=== PATIENT | female | born 1955 | race Caucasian/White ===

== ENCOUNTER → 2016-10-09 | Outpatient (CLI) | payer OTHER ==
[~2016-10-09] MED LIST: DYAZ37.57 PO; ESTROGEN PO; LOVA20TA PO; PRIL20TA2 PO; RANI150 PO; TRAZ150T2 PO; ZOFR8TAB PO; [UNRECOGNIZED DRUG - CODE] PO
[2016-10-09 16:12] LABS: BICARBONATE 29.9 MEQ/L (21.0-32.0); POTASSIUM 3.4 MEQ/L (3.5-5.1)
== END ==
LOC: PLAB 13:03
PROVIDERS: ATTEND Family Medicine
DX: R11.0 Nausea (principal)
CPT/HCPCS: 80048

== ENCOUNTER → 2016-10-11 | Outpatient (CLI) | payer OTHER ==
[2016-10-11 16:57] LABS: AUTOMATED NEUTROPHIL # 3.5 TH/MM3 (1.8-7.7); BASOPHIL % 0.7 % (0.0-2.0); EOSINOPHIL % 0.2 % (0.0-4.0); HEMATOCRIT 39.5 % (35.0-46.0); HEMO FLAGS DIFF FINAL; LYMPH % 34.2 % (9.0-44.0); LYMPHOCYTE # 2.2 TH/MM3 (1.0-4.8); MEAN CELL VOLUME 94.8 FL (80.0-100.0); MEAN CORPUSCULAR HEMOGLOBIN 32.6 PG (27.0-34.0); MEAN CORPUSCULAR HGB CONC 34.4 % (32.0-36.0); MONO % 11.1 % (0.0-8.0); NEUT % 53.8 % (16.0-70.0); PLATELET COUNT 367 TH/MM3 (150-450); RED BLOOD COUNT 4.17 MIL/MM3 (4.00-5.30); RED CELL DISTRIBUTION WIDTH 13.3 % (11.6-17.2); WHITE BLOOD COUNT 6.5 TH/MM3 (4.0-11.0)
[2016-10-11 17:22] LABS: RHEUMATOID FACTOR TRIGGER LESS THAN 10.0 IU/ML (0.0-14.9)
[2016-10-11 17:32] LABS: WESTERGREN SEDIMENTATION RATE 7 mm/hr (0-30)
[2016-10-16 03:53] LABS: SCL-70 IGG AUTOAB <1.0 NEG AI (<1.0 NEGATIVE)
== END ==
LOC: PLAB 14:53
PROVIDERS: ATTEND Family Medicine
DX: R11.0 Nausea (principal); E87.6 Hypokalemia; N28.9 Disorder of kidney and ureter, unspecified; R19.7 Diarrhea, unspecified; R63.4 Abnormal weight loss
CPT/HCPCS: 85025; 85652; 86038; 86140; 86160; 86225; 86235; 86430; 88184

== ENCOUNTER → 2017-03-11 | Outpatient (CLI) | payer OTHER ==
[2017-03-11 15:25] LABS: HEMATOCRIT 38.7 % (35.0-46.0); MEAN CELL VOLUME 98.7 FL (80.0-100.0); MEAN CORPUSCULAR HEMOGLOBIN 32.6 PG (27.0-34.0); PLATELET COUNT 348 TH/MM3 (150-450); RED BLOOD COUNT 3.92 MIL/MM3 (4.00-5.30); RED CELL DISTRIBUTION WIDTH 12.6 % (11.6-17.2); REVIEW FLAG FINAL
[2017-03-11 15:52] LABS: ALKALINE PHOSPHATASE 42 U/L (45-117); HDL CHOLESTEROL 110.6 MG/DL (40.0-60.0); TOTAL BILIRUBIN ADULT 0.5 MG/DL (0.2-1.0)
[2017-03-11 15:55] LABS: ALT (GPT) 24 U/L (10-53); ANION GAP 9 MEQ/L (5-15); AST (GOT) 34 U/L (15-37); BICARBONATE 27.5 MEQ/L (21.0-32.0); BLOOD UREA NITROGEN 12 MG/DL (7-18); CHLORIDE 104 MEQ/L (98-107); GLOMERULAR FILTRATION RATE 51 ML/MIN (>89); GLUCOSE,FASTING 108 MG/DL (74-99); LDL CHOLESTEROL 63 MG/DL (0-99); SODIUM (NA) 140 MEQ/L (136-145)
[2017-03-11 15:57] LABS: POTASSIUM 3.2 MEQ/L (3.5-5.1)
== END ==
LOC: CLAB 15:01
PROVIDERS: ATTEND Family Medicine
DX: R19.7 Diarrhea, unspecified (principal); M25.50 Pain in unspecified joint; I95.1 Orthostatic hypotension; R11.0 Nausea; K29.70 Gastritis, unspecified, without bleeding; E87.6 Hypokalemia; N28.9 Disorder of kidney and ureter, unspecified; R53.83 Other fatigue; K52.832 Lymphocytic colitis
CPT/HCPCS: 36415; 80053; 80061; 84443; 85027

== ENCOUNTER → 2017-12-23 | Outpatient (CLI) | payer OTHER ==
[2017-12-23 09:03] LABS: HEMATOCRIT 40.3 % (35.0-46.0); MEAN CELL VOLUME 98.2 FL (80.0-100.0); MEAN CORPUSCULAR HEMOGLOBIN 34.1 PG (27.0-34.0); MEAN CORPUSCULAR HGB CONC 34.8 % (32.0-36.0); MEAN PLATELET VOLUME 6.4 FL (7.0-11.0); PLATELET COUNT 330 TH/MM3 (150-450); RED CELL DISTRIBUTION WIDTH 13.2 % (11.6-17.2); WHITE BLOOD COUNT 7.2 TH/MM3 (4.0-11.0)
[2017-12-23 09:24] LABS: ALT (GPT) 22 U/L (10-53); CHOLESTEROL 213 MG/DL (120-200)
[2017-12-23 09:34] LABS: ALBUMIN 3.7 GM/DL (3.4-5.0); ALKALINE PHOSPHATASE 45 U/L (45-117); AST (GOT) 30 U/L (15-37); BICARBONATE 25.8 MEQ/L (21.0-32.0); BLOOD UREA NITROGEN 11 MG/DL (7-18); CALCIUM 8.2 MG/DL (8.5-10.1); CHLORIDE 103 MEQ/L (98-107); CHOLESTEROL/ HDL RATIO 1.63 RATIO; GLOMERULAR FILTRATION RATE 46 ML/MIN (>89); GLUCOSE,FASTING 102 MG/DL (74-99); HDL CHOLESTEROL 130.2 MG/DL (40.0-60.0); LDL CHOLESTEROL 53 MG/DL (0-99); SODIUM (NA) 139 MEQ/L (136-145); TOTAL BILIRUBIN ADULT 0.5 MG/DL (0.2-1.0); TOTAL PROTEIN 7.5 GM/DL (6.4-8.2); TRIGLYCERIDES 148 MG/DL (42-150)
== END ==
LOC: CLAB 08:34
PROVIDERS: ATTEND Family Medicine
DX: N28.9 Disorder of kidney and ureter, unspecified (principal); R19.7 Diarrhea, unspecified; E87.6 Hypokalemia; K52.832 Lymphocytic colitis; R53.83 Other fatigue; K29.70 Gastritis, unspecified, without bleeding; I95.1 Orthostatic hypotension; M25.50 Pain in unspecified joint; R63.0 Anorexia
CPT/HCPCS: 36415; 80053; 80061; 84443; 85027